=== PATIENT | female | born 1955 | race Caucasian/White ===

== ENCOUNTER 2019-01-06 08:55 | Outpatient (CLI) | payer OTHER, SELFPAY ==
--- NOTE | 2019-01-06 08:52 | DI.RAD_ITS ---
SYMPTOM/DIAGNOSIS: ANNUAL F/U RIGHT HIP: The patient is status post AR. The prosthesis in excellent position. Surrounding bone intact with no significant interval change when compared with prior images.
== END 2019-01-06 09:15 ==
PROVIDERS: PCP Family Medicine; Visit Provider Student in an Organized Health Care Education/Training Program
DX: Z96.641 Presence of right artificial hip joint (principal); Z47.1 Aftercare following joint replacement surgery
CPT/HCPCS: 73502

== ENCOUNTER 2019-06-14 01:25 | Outpatient (CLI) | payer OTHER, SELFPAY ==
--- NOTE | 2019-06-14 16:25 | DI.MAMMO_ITS ---
SYMPTOM/DIAGNOSIS: SCREENING Z12.31 MAMMOGRAM: Mammograms were interpreted according to the usual protocol including computer analysis with CAD system, tomosynthesis and C view imaging. The breasts are of moderate density with fairly symmetrical distribution of fibroglandular tissue. No dominant mass or clumped microcalcification is identified in either beast. The current examination is compared with previous examinations including Nov 2015 and there has been no gross interval change in appearance in comparison with the previous studies. CONCLUSION: No specific evidence of malignancy at this time. Routine screening examinations were suggested at yearly intervals in this age group according to the ACS/ACR guidelines. Category 1, breast density category B. MQSA ASSESSMENT OF FINDINGS: Negative. Category 1. Patient will receive a letter notifying them of these results. BI-RADS category B. There are scattered areas of fibroglandular density.
== END 2019-06-14 01:45 ==
PROVIDERS: PCP Family Medicine; Visit Provider Family Medicine
DX: Z12.31 Encounter for screening mammogram for malignant neoplasm of breast (principal)
CPT/HCPCS: 77063; 77067

== ENCOUNTER 2020-04-13 09:04 | Outpatient (REF) | payer SELFPAY ==
[2020-04-13 20:36] LABS: ALT 61 U/L (14-59); AST 32 U/L (15-37); Albumin 3.9 g/dL (3.4-5.0); Alkaline Phosphatase 103 U/L (46-116); Anion Gap 5.5 mmol/L (3-11); BUN 16 mg/dL (7-18); Bilirubin, Total 0.4 mg/dL (0.2-1.0); CO2 35.5 mmol/L (21.0-32.0); CREATININE 0.95 mg/dL (0.55-1.02); Calcium 8.9 mg/dL (8.5-10.1); Calculated LDL 140 mg/dL (<100); Chloride 101 mmol/L (98-107); Cholesterol 215 mg/dL (<200); Estimated GFR 59.41 (mL/min/1.73m2); Glucose 129 mg/dL (74-106); HDL Cholesterol 51 mg/dL (40-60); Potassium 4.7 mmol/L (3.5-5.1); Sodium 142 mmol/L (136-145); Total Protein 7.3 g/dL (6.4-8.2); Triglyceride 120 mg/dL (<150)
[2020-04-13 20:53] LABS: HCT 46.8 % (36.0-46.0); HGB 14.9 g/dL (12.0-15.5); Mean Corp. HGB Concentration 31.8 g/dL (32.0-36.0); Mean Corpuscular Hemoglobin 28.7 pg (27.0-33.0); Mean Platelet Volume 12.4 fL (8.0-11.0); Platelet Count 219 x1000/uL (130-400); RBC Distribution Width 13.8 % (11.7-14.6); White Blood Cell Count 5.94 k/cumm (4.4-10.8)
== END 2020-04-13 09:24 ==
LOC: NCHCN 09:04
PROVIDERS: PCP Family Medicine; Visit Provider Family Medicine
DX: Z00.00 Encounter for general adult medical examination without abnormal findings (principal); R73.03 Prediabetes; I10 Essential (primary) hypertension; R94.5 Abnormal results of liver function studies; E66.9 Obesity, unspecified
CPT/HCPCS: 80053; 80061; 85027

== ENCOUNTER 2021-03-23 08:12 | Emergency (ER) | payer OTHER, SELFPAY ==
[2021-03-23 08:20] VITALS: BP 174/84; PULSE 74; RESP 18; TEMP 36.4; O2SAT 95
--- NOTE | 2021-03-23 08:29 | ED.GENADUL_ITS ---
Discharge Plan Disposition Patient Disposition: HOME Condition: Stable Discharge Details Clinical Impression: Inversion sprain of left ankle Primary Care Provider: Lisa Langley ED Provider: Niki Gay Home Meds and New Rx's Prescriptions: No Action triamterene-hydrochlorothiazid 1 EACH capsule 1 cap PO DAILY RF: 0 esomeprazole magnesium [Nexium] 20 MG capsule,delayed release(DR/EC) 1 cap PO DAILY PRNRF: 0 acetaminophen [Mapap Extra Strength] 500 MG tablet 1,000 mg PO Q8H PRN PRNQty: 0 RF: 0 Discharge Instructions Instructions: Ankle Sprain (ED) Additional Instructions: Follow up with primary care provider in 3-5 days. Return to ED sooner if any worsening or concerns. Increase oral fluids. Please take Tylenol or Ibuprofen with food every 4-6 hours as needed for pain and swelling. Rest ice compression elevation. Stand Alone Forms: Work Release Referrals: Lisa Langley [Primary Care Provider] - Discharge Data Discharge Date/Time-TO BE ENTERED AT DEPARTURE: 03/23/21 10:10 Medical Decision Making 65-year-old female presents to the ER with left ankle pain after getting out of a car last night she states that she felt acute pain heard a loud pop. She did not fall down after the injury and has been ambulatory with difficulty since then. She did ice it and wrap it with an Charly wrap prior to arrival. She did not take any Tylenol or ibuprofen this morning. Patient has a past medical history of right hip replacement and tubular adenoma, hypertension surgical history includes lithotripsy. Imaging ordered to rule out underlying abnormality at this time I do suspect sprain versus fracture. Ibuprofen ordered and ice pack given. XR ANKLE LT COMPLETE EXAM: XR ANKLE LT COMPLETE CLINICAL HISTORY: R/O Fracture TECHNIQUE: COMPARISON: No exams were available for comparison FINDINGS: Three views were obtained. The ankle mortise is well maintained. There is no evidence of acute fracture or dislocation. Mild degenerative spurring of Achilles and plantar fascia attachments on the calcaneus noted. Mild marginal osteophyte also seen anteriorly at the distal tibia. IMPRESSION: No evidence of acute injury. Patient was discharged with a walking boot instructed on rest ice compression elevation, verbalized understanding. This text was generated using [employer] system, please disregard any oddities of phrase or misspellings. HPI General Mode of arrival: ambulatory . Date/Time Provider Initiated Documentation: 03/23/21 08:22 . Limitations to Documentation: no limitations . Information obtained by: patient . HPI Narrative: 65-year-old female presents to the ER with left ankle pain after getting out of a car last night she states that she felt acute pain heard a loud pop. She did not fall down after the injury and has been ambulatory with difficulty since then. She did ice it and wrap it with an Charly wrap prior to arrival. She did not take any Tylenol or ibuprofen this morning. Patient has a past medical history of right hip replacement and tubular adenoma, hypertension surgical history includes lithotripsy. Related Data Home Medications Medication Instructions Recorded Confirmed esomeprazole magnesium [Nexium] 1 cap PO DAILY PRN 02/05/16 03/23/21 triamterene-hydrochlorothiazid 1 cap PO DAILY 02/05/16 03/23/21 acetaminophen [Mapap Extra 1,000 mg PO Q8H PRN PRN #0 tab 01/07/18 03/23/21 Strength] Previous Rx's Medication Instructions Recorded acetaminophen [Mapap Extra 1,000 mg PO Q8H PRN PRN #0 tab 01/07/18 Strength] Allergies Allergy/AdvReac Type Severity Reaction Status Date / Time No Known Allergies Allergy Unverified 03/23/21 08:22 General Stated Complaint: Orthopedic NATANAEL: 4 Review of Systems All systems reviewed & are unremarkable except as noted in HPI and below Musculoskeletal Musculoskeletal: Reports arthralgias (left ankle) and Reports joint swelling PFSH Medical History Hypertension Surgical History kidney stone lithotipsy Social History Smoking/Tobacco Use Status: Never Smoking risk assessment performed?: Yes Alcohol Intake: never Drug use: Never Substance use type: does not use Do you feel safe at home: Yes Do you feel safe in your relationship?: Yes Exam Extrem Left lower extremity: normal capillary refill, no joint enlargement and lower leg Details: normal to inspection; no tenderness and no deformity; no cyanosis Ankle/foot/toe images: 1. Tenderness just distal to the lateral malleolus, no obvious deformity no crepitus no significant swelling, mild swelling noted approximately 1+ trace pitting edema. Dorsal pedal pulses intact. Course Vital Signs Vital signs: Vital Signs Temperature 36.4 C L 03/23/21 08:20 Pulse 74 03/23/21 08:20 Respiratory Rate 18 03/23/21 08:20 Blood Pressure 174/84 H 03/23/21 08:20 Pulse Oximetry 95 03/23/21 08:20 Temperature 36.4 C L 03/23/21 08:20 Temperature Source Skin 03/23/21 08:20 Pulse 74 03/23/21 08:20 Respiratory Rate 18 03/23/21 08:20 Respiratory Effort Non-Labored 03/23/21 08:24 Blood Pressure 174/84 H 03/23/21 08:20 Blood Pressure Position Sitting 03/23/21 08:20 Pulse Oximetry 95 03/23/21 08:20 Oxygen Delivery Method Room Air 03/23/21 08:20 Oxygen Flow Rate 0 03/23/21 08:20 Pain Level 8 03/23/21 08:24
[2021-03-23] MEDS: Ibuprofen 600 MG TAB PO (08:49)
--- NOTE | 2021-03-23 08:50 | DI.RAD_ITS ---
Exam(s) XR ANKLE LT COMPLETE EXAM: XR ANKLE LT COMPLETE CLINICAL HISTORY: R/O Fracture TECHNIQUE: COMPARISON: No exams were available for comparison FINDINGS: Three views were obtained. The ankle mortise is well maintained. There is no evidence of acute frac ture or dislocation. Mild degenerative spurring of Achilles and plantar fascia attachments on the ca lcaneus noted. Mild marginal osteophyte also seen anteriorly at the distal tibia. IMPRESSION: No evidence of acute injury. RADIATION DOSE DELIVERED: Total DLP
== END 2021-03-23 10:10 | disposition home or self-care (01) ==
PROVIDERS: Emergency Provider Registered Nurse Emergency; PCP Family Medicine
DX: S93.492A Sprain of other ligament of left ankle, initial encounter (principal); X58.XXXA Exposure to other specified factors, initial encounter
CPT/HCPCS: 29515; 99283; 73610; 99282

== ENCOUNTER 2021-12-26 14:25 | Outpatient (REF) | payer OTHER, SELFPAY ==
--- NOTE | 2021-12-26 09:30 | PAPFT_PTH ---
PATIENT: Jemma Turner LOC: [facility]#:[id number] AGE/SX: 66/F ROOM: RE12/26/[address]: Lisa Langley : 1955 BED: DIS: 12/26/2021 SPEC #: [id number] RECD: 12/27/21 12:56 STATUS: CRISTI BOYCE #: [id number] SHREYA: 12/26/21 09:[address]: Lisa Langley DEPT: [facility] Cytology RECD BY: Shireen Morales Tissues: 1 - CX/ENDOCX FOR PAP SMEARS Procedures: PAP THIN PREP/UVM Screening HPV DNA PROBE Comments: [id number]
== END 2021-12-26 14:26 | disposition home or self-care (01) ==
LOC: NCHCN 14:25
PROVIDERS: PCP Family Medicine; Visit Provider Family Medicine
DX: Z12.4 Encounter for screening for malignant neoplasm of cervix (principal); Z11.51 Encounter for screening for human papillomavirus (HPV)
CPT/HCPCS: 88142; 87624

== ENCOUNTER 2022-01-15 01:22 | Outpatient (CLI) | payer OTHER, SELFPAY ==
--- NOTE | 2022-01-15 09:15 | DI.MAMMO_ITS ---
Exam(s) MAMMO SCREENING EXAM: MAMMO SCREENING CLINICAL HISTORY: SCREENING, Z12.31 TECHNIQUE: Mammograms were interpreted according to the usual protocol including computer analysis w Lindsey [employer] CAD system, tomosynthesis and C-view imaging. COMPARISON: 2012 through 2018 FINDINGS: The breasts are composed of mainly fatty density , Breast Density category A. No suspicious masses or suspicious microcalcifications are seen. No skin thickening or abnormal axillary lymph nodes are seen. There has been no significant change from prior exams. IMPRESSION: BI-RADS Category 1, Negative mammogram Yearly screening mammography is recommended. Breast Density - Category A, fatty density. A negative radiographic report should not delay biopsy if a dominant or clinically suspicious mass is present. Up to ten percent of cancers are not identified on mammography. A negative report may reinforce clinical impression. Adenosis and dense breasts may obscure an underlying neoplasm. False positive reports average 6 to 10%. Patient will receive a letter notifying them of these results.
== END 2022-01-15 01:42 ==
PROVIDERS: PCP Family Medicine; Visit Provider Family Medicine
DX: Z12.31 Encounter for screening mammogram for malignant neoplasm of breast (principal)
CPT/HCPCS: 77063; 77067

== ENCOUNTER 2022-08-14 16:54 | Outpatient (REF) | payer OTHER, SELFPAY ==
[2022-08-14 14:57] LABS: HCT 44.7 % (36.0-46.0); HGB 14.2 g/dL (11.2-15.7); MCH 28.7 pg (27.0-33.0); MCHC 31.8 % (32.0-36.0); MCV 90 fL (80-95); MPV 12.2 fL (8.0-11.0); Platelet Count 199 10^3/uL (130-400); RBC 4.95 10^6/uL (3.93-5.22); RDW 13.2 % (11.7-14.6); RDW-SD 43.5 fL; WBC 5.36 10^3/uL (4.4-10.8)
[2022-08-14 15:18] LABS: ALT 90 U/L (14-59); AST 51 U/L (15-37); Albumin 3.6 g/dL (3.4-5.0); Alkaline Phosphatase 90 U/L (46-116); Anion Gap 3.9 mmol/L (3-11); BUN 17 mg/dL (7-18); Bilirubin, Total 0.5 mg/dL (0.2-1.0); CO2 34.1 mmol/L (21.0-32.0); CREATININE 0.8 mg/dL (0.55-1.02); Calcium 8.9 mg/dL (8.5-10.1); Chloride 102 mmol/L (98-107); Estimated GFR 81.72 (mL/min/1.73m2); Glucose 133 mg/dL (74-106); Potassium 4.2 mmol/L (3.5-5.1); Sodium 140 mmol/L (136-145); Total Protein 7.4 g/dL (6.4-8.2)
[2022-08-14 15:28] LABS: Hemoglobin A1C 7.9 % (<5.7)
== END 2022-08-14 16:55 | disposition home or self-care (01) ==
LOC: NCHCN 16:54
PROVIDERS: PCP Family Medicine; Visit Provider Family Medicine
DX: I10 Essential (primary) hypertension (principal); R73.03 Prediabetes; R94.5 Abnormal results of liver function studies
CPT/HCPCS: 80053; 85027; 83036; 83735

== ENCOUNTER 2023-01-13 10:40 | Outpatient (CLI) | payer BC, MEDICARE, SELFPAY ==
--- NOTE | 2023-01-13 10:00 | DI.RAD_ITS ---
Exam(s) XR HIP LT COMPLETE AP PELVIS EXAM: XR HIP LT COMPLETE AP PELVIS CLINICAL HISTORY: l hip pain. TECHNIQUE: 2D digital imaging was performed. COMPARISON: CR RT HIP COMPLETE AP PELVIS from 01/21/2018 CR XR hip RT AP lat only from 01/06/2019 FINDINGS: Two views: No evidence pelvic nor hip fracture. Right hip prosthesis appears stable. Compared to 2018 there is further narrowing of the left hip joint. IMPRESSION: Stable appearance of the right hip prosthesis. Further progression of osteoarthritic degenerative changes in the left hip, presently severe. DATA REPOSITORY: RADIATION DOSE DELIVERED:
== END 2023-01-13 10:41 | disposition home or self-care (01) ==
LOC: DIORS 10:42
PROVIDERS: PCP Family Medicine; Referring Provider Family Medicine; Visit Provider Physician Assistant
DX: M16.12 Unilateral primary osteoarthritis, left hip (principal)
CPT/HCPCS: 99213; 73502

== ENCOUNTER 2023-02-07 01:23 | Outpatient (CLI) | payer BC, MEDICARE, SELFPAY ==
[2023-02-07 11:19] LABS: HCT 44.7 % (36.0-46.0); HGB 15.2 g/dL (11.2-15.7); MCH 29.7 pg (27.0-33.0); MCV 88 fL (80-95); MPV 11.7 fL (8.0-11.0); Platelet Count 222 10^3/uL (130-400); RBC 5.11 10^6/uL (3.93-5.22); RDW 12.8 % (11.7-14.6); WBC 6.24 10^3/uL (4.4-10.8)
[2023-02-07 11:46] LABS: Anion Gap 6.2 mmol/L (3-11); BUN 21 mg/dL (7-18); CO2 30.8 mmol/L (21.0-32.0); CREATININE 0.9 mg/dL (0.55-1.02); Calcium 9.4 mg/dL (8.5-10.1); Chloride 103 mmol/L (98-107); Estimated GFR 70.51 (mL/min/1.73m2); Glucose 138 mg/dL (74-106); Potassium 3.8 mmol/L (3.5-5.1); Sodium 140 mmol/L (136-145)
== END 2023-02-07 01:24 | disposition home or self-care (01) ==
LOC: LBO 01:23
PROVIDERS: PCP Family Medicine; Visit Provider Student in an Organized Health Care Education/Training Program
DX: M25.552 Pain in left hip (principal); M16.12 Unilateral primary osteoarthritis, left hip; Z01.818 Encounter for other preprocedural examination; Z01.812 Encounter for preprocedural laboratory examination
CPT/HCPCS: 36415; 80048; 85027

== ENCOUNTER 2023-02-11 05:51 | Day surgery (SDC) | payer BC, MEDICARE, SELFPAY ==
[2023-02-11] VITALS (14 sets, daily range): BP systolic 94–152; BP diastolic 47–89; PULSE 59–71; RESP 14–23; TEMP 35.9–36.4; O2SAT 92–95; BMI 41.0
[2023-02-11] MEDS: Acetaminophen 500 MG TAB 1000 MG PO ×2 (06:27→14:47)
[2023-02-11] MEDS: Celecoxib 200 MG CAP 400 MG PO (06:27)
[2023-02-11] MEDS: Lactated Ringers 1,000 ML 80 ML IV (06:50)
--- NOTE | 2023-02-11 07:01 | W.ANESPRE ---
General Info Date of Service Date Performed: 02/11/23 Height: 5 ft 9.5 in Weight: 127.8 kg Body Mass Index (BMI): 41.0 Surgical Procedure: Operation Date: 02/11/23 07:50 Proposed Procedure Side Surgeon p Hip Total Hip Anterior, ACTIS Left Xiang Lopez MD Meds Allergies and Home Medications Allergies Allergy/AdvReac Type Severity Reaction Status Date / Time No Known Allergies Allergy Unverified 02/11/23 06:12 Home Medication Medication Instructions Recorded esomeprazole magnesium 20 mg 1 cap PO DAILY PRN 02/05/16 capsule,delayed release (Nexium) triamterene 37.5 1 cap PO DAILY 02/05/16 mg-hydrochlorothiazide 25 mg capsule ibuprofen 200 mg tablet 800 mg PO Q6H PRN 02/11/23 Current Visit Medications: Current Medications Generic Name Dose Route Start Last Admin Trade Name Freq PRN Reason Stop Dose Admin Acetaminophen 1,000 mg 02/11/23 06:00 02/11/23 06:27 Acetaminophen 500 Mg Tab PO 02/11/23 16:00 1,000 mg PREOP JOHN Administration Celecoxib 400 mg 02/11/23 06:00 02/11/23 06:27 Celecoxib 200 Mg Cap PO 02/11/23 16:00 400 mg PREOP JOHN Administration Tranexamic Acid 1,000 mg/ 60 mls @ 360 mls/hr 02/11/23 06:00 Sodium Chloride IV 02/11/23 16:00 PREOP JOHN Ringer's Solution 1,000 mls @ 80 mls/hr 02/11/23 06:00 02/11/23 06:50 IV 02/11/23 23:59 80 mls/hr INFUSION JOHN Administration Cefazolin Sodium 3,000 mg/ 100 mls @ 200 mls/hr 02/11/23 06:00 Sodium Chloride IVPB 02/11/23 16:00 PREOP JOHN IV Miscellaneous Supplies 1 each 02/11/23 06:00 Iv Access IV 02/11/23 23:59 DIRECTED JOHN Sodium Chloride 0 ml 02/11/23 06:00 Normal Saline Flush 10 Ml Syr IV 02/11/23 23:59 PRN PRN Sodium Chloride 0 ml 02/11/23 06:00 Normal Saline 10 Ml Vial IJ 02/11/23 23:59 DIRECTED PRN Sterile Water 0 ml 02/11/23 06:00 Water,Injection,Sterile 10 Ml Vial IJ 02/11/23 23:59 DIRECTED PRN PFSH Active Problems Active Problems: Problem Status Onset Code Tubular adenoma 02/05/16 D36.9 Inversion sprain of left ankle S93.402A Type 2 diabetes mellitus E11.9 Abnormal LFTs R79.89 Degenerative joint disease of left hip M16.12 Medical History Medical History History of adenomatous polyp of colon Hypertension Obesity Surgical History Surgical History (Updated 02/11/23 @ 06:15 by Natlaiya Armstrong) History of right hip replacement (02/18/18) DOS: 01/06/18 Dr. Lopez Hx of colonoscopy kidney stone lithotipsy Tobacco Smoking/Tobacco Use Status: Never Alcohol Alcohol Intake: never Substance Use Substance use: Never Substance use type: does not use Vital Signs and Lab Results Vital Signs Most Recent Vital Signs in EMR: Most Recent Vital Signs Temp Pulse Resp BP Pulse Ox 36.2 C L 71 18 152/89 H 94 02/11/23 06:16 02/11/23 06:16 02/11/23 06:16 02/11/23 06:16 02/11/23 06:16 Lab Results Blood Type / Crossmatch: No Data to Display Complete Blood Count: White Blood Count 6.24 10^3/uL (4.4-10.8) 02/07/23 11:10 Red Blood Count 5.11 10^6/uL (3.93-5.22) 02/07/23 11:10 Hemoglobin 15.2 g/dL (11.2-15.7) 02/07/23 11:10 Hematocrit 44.7 % (36.0-46.0) 02/07/23 11:10 Platelet Count 222 10^3/uL (130-400) 02/07/23 11:10 Complete Metabolic Panel: Sodium 140 mmol/L (136-145) 02/07/23 11:10 Potassium 3.8 mmol/L (3.5-5.1) 02/07/23 11:10 Chloride 103 mmol/L (98-107) 02/07/23 11:10 Carbon Dioxide 30.8 mmol/L (21.0-32.0) 02/07/23 11:10 BUN 21 mg/dL (7-18) H 02/07/23 11:10 Creatinine 0.9 mg/dL (0.55-1.02) 02/07/23 11:10 Est GFR (CKD-EPI 2020) 70.51 (mL/min/1.73m2) 02/07/23 11:10 Calcium 9.4 mg/dL (8.5-10.1) 02/07/23 11:10 Glucose 138 mg/dL (74-106) H 02/07/23 11:10 Liver Function Panel: No Data to Display Coagulation Panel: No Data to Display Cardiac Panel: No Data to Display Arterial Blood Gas: No Data to Display Venous Blood Gas: No Data to Display Pancreas Panel: No Data to Display Thyroid Panel: No Data to Display Infectious Disease: No Data to Display Blood Cultures: No Data to Display Toxicology Panel: No Data to Display Anesthesia Assessment and Plan Anesthesia History Personal History: No History of Anesthesia Complications Family History: Family History Unknown Exercise Tolerance Exercise Tolerance: Metabolic Equivalents>4 Pertinent Negatives Pertinent Negatives: No Symptoms of GERD, No Major Cardiovascular Symptoms or Complaints and No Major Pulmonary Symptoms or Complaints Cardiac & Pulmonary Exam Cardiac Exam: Normal S1/S2 Heart Sounds Pulmonary Exam: Clear Bilateral Breath Sounds and Unable to Assess Implantable Cardiac Device Does patient have a Pacemaker or an ICD?: No Airway Exam Known Difficult Airway: No Mallampati Class: 2 Mouth Opening: Normal (> 3cm) Thyromental Distance: Greater than 3 cm Neck Range of Motion: Full ROM Neck Circumference: Normal Teeth Condition: Removable Dentures/Plates Upper ASA Classification ASA Score: ASA 3 Emergency Case?: No NPO Status NPO Status: NPO Clears >2 hours, Solids >8 hours Anesthesia Plan Resuscitation Status: Full Code Anesthesia Technique: General Anesthesia Airway Planned: LMA Monitors Used: Standard Monitors
--- NOTE | 2023-02-11 07:12 | DSE_ITS ---
Date of service: 02/11/23 Time of Service: 07:17 DS: Diagnosis Discharge Diagnosis (1) Degenerative joint disease of left hip: Status: Chronic Discharge Plan Disposition Patient Disposition: Home Condition: Good Discharge Details Reason For Visit: Left hip DJD Attending Provider: Xiang Lopez Primary Care Provider: Lisa Langley Home Meds and New Rx's Prescriptions: New acetaminophen 500 mg tablet 1,000 mg PO Q8H PRN Qty: 90 0RF Rx Instructions: Take two tablets up to every 8 hours as needed for pain aspirin 81 mg tablet,delayed release (DR/EC) 81 mg PO BID 30 Days Qty: 60 0RF celecoxib [Celebrex] 200 mg capsule 200 mg PO BID PRNQty: 60 0RF Rx Instructions: Take one tablet twice daily for pain and inflammation docusate sodium [Colace] 100 mg capsule 100 mg PO BID Qty: 30 0RF dexamethasone 4 mg tablet 4 mg PO DAILY Qty: 2 0RF Rx Instructions: Take one tablet once daily for two days oxycodone 5 mg tablet 5 mg PO Q6H PRNQty: 12 0RF Rx Instructions: Take one tablet up to every 6 hours as needed for severe postoperative pain Continued triamterene-hydrochlorothiazid 1 EACH capsule 1 cap PO DAILY esomeprazole magnesium [Nexium] 20 MG capsule,delayed release(DR/EC) 1 cap PO DAILY PRN Discontinued ibuprofen 200 mg Tablet 800 mg PO Q6H PRN Discharge Instructions Additional Instructions: Total Hip Discharge Instructions Activity: The most important activity is to walk. You should try to take short walks a few times a day. You have no restrictions on movement or positioning, but do not try to force what you do. You will find some stiffness and weakness with hip flexion (lifting your knee). Do not try to strengthen this too early, continue to practice walking and stairs and this will come. - Outpatient physical therapy can be helpful to help return you to a normal gait and improve your flexibility and strength. This can start around 2 weeks. For some patients, it?s not necessary. Usually this is determined at the time of discharge or at the first post-operative visit. - You should wear the DELLA hose on both legs for 2 weeks. Dressing: Keep the surgical dressing in place for at least one week. After the first week it may be removed and replace with light gauze and tape or nothing. It may get wet after 3 days but avoid soaking the dressing. If it gets wet, just lightly pat dry. It is important to always keep some gauze between skin folds, especially when you are sitting. Spend some time with the wound exposed when you are lying flat as the incision does wrinkle onto itself. Medications: - You should take Tylenol and an anti-inflammatory Celebrex as your primary pain control medications. If the Celebrex is too expensive or not covered, please call the office for another alternative (Advil/Ibuprofen or Naproxen/Aleve). - You have been prescribed a stronger pain medication Oxycodone for breakthrough pain, take as needed as prescribed. - You take Esomeprazole at baseline - continue with this medication to help reduce stomach acid and reflux. - You have also been prescribed Decadron to help with post-operative nausea and pain. You will take this for two days starting tomorrow. - You will be taking Aspirin 81mg twice a day for DVT prevention unless instructed otherwise. - If you have constipation you should take Colace (which has been prescribed) or Miralax (which is available [id number]). It takes most people 3-4 days to have a bowel movement. Follow-up: 2 weeks If you have any acute concerns or questions, please do not hesitate to contact the office at [phone]. You may contact Dr. Lopez with any questions after hours through the hospital at [phone] or on his cell phone at [phone]. Stand Alone Forms: Anesthesia Discharge Inst., Maya Sandoval (DSU) Referrals: Xiang Lopez MD [ [facility] STAFF PHYSICIAN] - Equipment/Supplies: Walker Activity:: Elevate Remove Dressings/Wound Care:: Do Not Remove Shower/Bathe:: Cover Diet:: As Tolerated Discharge Orders Discharge Orders: Discharge Order (Routine); Ordered 02/11/23 Ordered By: Xiang Lopez DS: Summary Time Spent with Patient providing and/or coordinating discharge services: Less than 30 minutes Status at Discharge Functional status at discharge: uses cane/walker Overall status at discharge: patient is progressing back to baseline Mental Status: mental status grossly normal Speech and Movement: speech and movement normal Mood: congruent mood Affect: normal affect Exam Psych Mental Status: mental status grossly normal Speech and Movement: speech and movement normal Mood: congruent mood Affect: normal affect DS: Data Vitals/I&O Vitals and I&O: Vital Signs Temperature 97.2 F L 02/11/23 06:16 Pulse 71 02/11/23 06:16 Pulse Rhythm Regular 02/11/23 06:16 Respiratory Rate 18 02/11/23 06:16 Respiratory Depth Normal 02/11/23 06:16 Blood Pressure 152/89 H 02/11/23 06:16 Pulse Oximetry 94 02/11/23 06:16 Oxygen Delivery Method Room Air 02/11/23 06:16 Oxygen Flow Rate 0 02/11/23 06:16 Pain Level 2 02/11/23 06:16 Intake & Output 02/10/23 02/10/23 02/11/23 11:59 23:59 11:59 Weight 280 lb 15.984 oz 281 lb 12.012 oz PFSH All Active Problems Tubular adenoma (Acute 02/05/16) Inversion sprain of left ankle (Acute) Type 2 diabetes mellitus (Acute) Abnormal LFTs (Acute) Degenerative joint disease of left hip (Chronic) Medical History History of adenomatous polyp of colon Hypertension Obesity Surgical History (Updated 02/11/23 @ 06:15 by Nataliya Armstrong) History of right hip replacement (02/18/18) DOS: 01/06/18 Dr. Lopez Hx of colonoscopy kidney stone lithotipsy Social History Smoking/Tobacco Use Status: Never Smoking risk assessment performed?: Yes Alcohol Intake: never Drug use: Never Substance use type: does not use Do you feel safe at home: Yes Do you feel safe in your relationship?: Yes Additional Social history: Unable to assess privatley Time Spent with Patient Time Spent with Patient: <45 minutes Time was spent: obtaining and/or reviewing separately otained hiistory, ordering medications,tests, procedures and counseling the patient
--- NOTE | 2023-02-11 07:15 | DI.RAD_ITS ---
Exam(s) XR HIP LT IN OR EXAM: XR HIP LT IN OR CLINICAL HISTORY: left hip replacement in OR TECHNIQUE: 2D and realtime digital imaging was performed. CONTRAST MATERIAL: Refer to procedure report. COMPARISON: CR XR HIP LT COMPLETE AP PELVIS from 01/13/2023 FINDINGS: Fluoroscopy was provided for Dr. Lopez during the performance of a left hip replacement. Please refer to the procedure report for complete details. Ka,r=12.3 mGy IMPRESSION: RADIATION DOSE DELIVERED:
[2023-02-11] MEDS: ceFAZolin 3,000 MG in Normal Saline 100 ML 200 MG IVPB (07:35)
[2023-02-11] MEDS: HYDROmorphone 2 MG/ML SYR IVP ×2 (10:03→10:16)
[2023-02-11] MEDS: Normal Saline 10 ML VIAL IJ (10:03)
[2023-02-11] MEDS: oxyCODONE 5 MG TAB PO (11:11)
--- NOTE | 2023-02-11 11:20 | W.ANESPOSTOP ---
Postoperative Evaluation Date, Time and Location Date Performed: 02/11/23 Time Performed: 10:35 Patient Location: PACU Vital Signs Most Recent Imported Vital Signs: Most Recent Vital Signs Temp Pulse Resp BP Pulse Ox 35.9 C L 68 18 108/64 94 02/11/23 11:13 02/11/23 11:13 02/11/23 11:13 02/11/23 11:13 02/11/23 11:13 Pain Score Most Recent Pain Score: Most Recent Pain Score Pain Level 6 02/11/23 10:52 Assessment Mental Status: Awake (Alert & Oriented to Patient Baseline) Airway and Respiratory Function: Patent airway with normal (patient baseline) respiratory exam Cardiovascular Function: Hemodynamically Stable Hydration Status: Adequately Hydrated Nausea & Vomiting: No Nausea or Vomiting Pain: Pain is tolerable per patient Peripheral Nerve Block: Patient did not receive a nerve block
--- NOTE | 2023-02-11 12:10 | IN_ITS ---
PT Notes Visit Reasons: Left hip DJD Physical Therapy Day Surgery Initial Evaluation Date: 02/11/2023 Referring Doctor: FARHAN Ramirez PT Orders: PT CONSULT: S/P Ortho surgery Precautions: WBAT on left LE with AD. Patient Profile/Admitting Diagnosis: Jemma is a 67-year-old female with degenerative joint disease of the left hip and status post left anterior total hip arthroplasty on postoperative day 0. PMHX: Medical History?(Updated 02/06/23 @ 16:07 by Mirtha Pinon) History of adenomatous polyp of colon Hypertension Obesity Surgical History?(Updated 12/17/22 @ 15:41 by Amy Rivas RN) History of right hip replacement (02/18/18) DOS: 01/06/18 Dr. Lopez kidney stone lithotipsy Social History/Home Situation: Lives with in a private home with 3 steps to enter with rails on both sides. Independent with all aspects of ADLs but had been having difficulty performing them due to worsening pain in left hip. Equipment Owned/DME: None Subjective: Complained of lightheadedness and nausea during ambulation activity that resolved after about two hours of rest. Denies headache and chest pain during 2 PT sessions with patient today. Objective: General Observation: Mepilex Ag over surgical incision. Supine in bed. TEDs to B legs. In NAD. present in room throughout session. Mental Status: Alert and oriented x4 Pain: 1?2/10 pain in the left hip at rest and with movement. ROM: Right Lower Extremity: Hip flexion WFL. Hip abduction WFL. Knee flexion WFL. Ankle dorsiflexion WFL. Ankle plantarflexion WFL. Left Lower Extremity: Hip flexion WFL. Hip abduction WFL. Knee flexion WFL. Ankle dorsiflexion WFL. Ankle plantarflexion WFL. Strength: Right Lower Extremity: Hip flexors 5/5. Hip abductors 5/5. Knee flexors 5/5. Knee extensors 5/5. Ankle dorsiflexors 5/5. Ankle plantarflexors 5/5. Left Lower Extremity:Hip flexors 4-/5. Hip abductors 4-/5. Knee flexors 5/5. Knee extensors 4-/5. Ankle dorsiflexors 5/5. Ankle plantarflexors 5/5. Sensation: Intact as to pain and light pressure in bilateral lower extremities Bed Mobility/Transfers: Supine to sit standby assist Sit to stand contact-guard assist Stand to sit standby assist Bed to chair standby assist Gait: Tolerated level surface ambulation of about 80 feet using front-wheeled walker with step-to gait pattern before patient felt lightheaded, nauseated, and vomitted x 3 with moderate amount of vomitus. Nurses Maggie and Mu Menon and Ashley assisted to clean up patient before PT safely assisted with transfer from wheelchair back to bedside chair. Stairs: Stair negotiation was deferred until patient's status re-stabilized. Patient was seen 2 hours later and was able to complete 6 x 4 inch steps and 4 x 6 inch steps of holding onto bilateral rails with step-to gait pattern requiring contact-guard assist with no further complaint of lightheadedness and nausea. Balance: Static Sitting: Normal Dynamic Sitting: Normal Static Standing: Fair Dynamic Standing: Fair Special Tests: Mobility Limitations Standardized Measure [facility]-PAC 6 clicks Basic Mobility Inpatient Short Form: Raw Score: 2` CMS Score: 29% deficit Informed Consent/Education: Patient instructed in purpose of PT consult. Packet containing AR exercise protocol has been given to patient. Education and training on initial set of exercises that can be done at home have been completed with patient. NEURO RE-ED: Facilitated muscle reactivation and recruitment of L hip musculature S/P L hip AR to allow for safe performance of bed mobility, transfers, and ambulation with AD. Instructed on safe and correct performance of HEP written below: Access Code: [email or web address] URL: [email or web address] Date: 02/11/2023 Prepared by: Zully Caballero Exercises - Supine Gluteal Sets - 1 x daily - 7 x weekly - 3 sets - 10 reps - Supine Ankle Pumps - 1 x daily - 7 x weekly - 3 sets - 10 reps - Supine Heel Slide - 1 x daily - 7 x weekly - 3 sets - 10 reps - Seated Ankle Pumps - 1 x daily - 7 x weekly - 3 sets - 10 reps - Supine Ankle Pumps - 1 x daily - 7 x weekly - 3 sets - 10 reps - Seated March - 1 x daily - 7 x weekly - 3 sets - 10 reps Assessment: Patient requires use of front wheeled walker to maximize independence and reduce fall risk. Patient presents with clinical signs and symptoms consistent with current/admitting diagnoses that have resulted to mobility limitations, gait instability, generalized weakness, and impairment of motor control as demonstrated by the following impairment level findings: 1. Decreased strength to left hip major muscle groups 2. Impaired standing balance Impairments are contributing to the following functional limitations: 1. Inability to safely ambulate without assistive device 2. Increase completion time for mobility ADL performance 3. Increased fall risk Patient is assessed as a 18144 moderate complexity based on the following: History: 67-year-old female with impairment level findings, functional limitations, and past medical history as indicated above Examination: Demonstrable impairment in strength, balance, and mobility level with underlying impairments and functional limitations as documented above Presentation: Evolving Decision Makin moderate complexity Goals: N/A. PT evaluation and 1-2 treatment sessions only for functional mobility training using recommended AD and for HEP instruction. Plan of Care/Treatment Plan: N/A. PT evaluation and 1-2 treatment session only for functional mobility training using recommended AD and for HEP instruction. DISCHARGE RECOMMENDATIONS: Home when medically cleared by orthopedic surgeon. Recommend outpatient PT services in order to optimize functional mobility outcomes and facilitate return to independent community ambulation with a least restrictive device. TREATMENT CODE/TIME: 80889 x 20 minutes, 29604 x 31 minutes beginning at 12:15 PM and 14:15 PM. Thank you for the opportunity to participate in the care of this patient. Zully Caballero PT, DPT, CLT [facility] [place], [place]
--- NOTE | 2023-02-11 16:05 | ROE_ITS ---
Date of service: 02/11/23 Time of Service: 09:05 Operative Note Operative Note DATE OF PROCEDURE: 02/11/23 PRE-OP DIAGNOSIS: Left Hip Arthritis POST-OP DIAGNOSIS: same PROCEDURE: Left Anterior Total Hip Arthroplasty with Intraoperative Navigation SURGEON: Xiang Lopez CLINICAL LABORATORY SCIENCE PROFESSOR: Mirtha Pinon ANESTHESIA TYPE: Spinal Refer to Anesthesia Record ESTIMATED BLOOD LOSS: 250 PATHOLOGY: none sent TOURNIQUET TIME: 0 COMPLICATIONS: None Patient was transported to: PACU Patient's condition: stable Implants: 1. Depuy Petroleum Acetabular Component, 52mm 2. Depuy Acetabular Liner, [id number] 3. Depuy Actis Standard Collared Femoral Stem, Size 7 4. Depuy Altrx Ceramic Femoral Head, Size 36+1.5mm Indications: I have seen Jemma in clinic for symptoms of hip arthritis, confirmed with radiographic findings. She has exhausted nonoperative methods and was having significant limitations in daily function and desired better function and less pain. I discussed the technical details of a hip replacement. I explained the risks of the procedure to include, but not limited to, bleeding, infection, pain, stiffness, fracture, damage to nerves and vessels, damage to muscles and tendons, loosening, instability, leg length inequality, need for repeat proced ure, blood clot and cardiopulmonary demise. Despite these risks, Annetta elected to proceed. Findings: There was significant signs of arthritis throughout the hip with large osteophytes about the femoral head/neck junction and loss of cartilage from the weigh bearing portions of the joint. Procedure Description: Jemma was greeted in the preoperative holding area where the correct side was identified and marked. The consent was reviewed with the patient and signed. The history and physical was updated. All questions were answered. She was taken back to the operating room. A general anesthestic was then administered. The feet were wrapped with cast padding and Coban and then placed into the boot liners and then into the boots. Care was taken to protect the skin and make sure the heels were fully down and the boots were stable. The patient was then positioned onto the HANA table. Both legs were held in a neutral position. SCDs were applied. The patient was then slid down onto a peroneal post. Prophylactic antibiotics in the form of Cefazolin were administered. 1g of Tranxemic Acid was given intravenously within 30 minutes of incision. The left leg was then prepped with Chloraprep and draped in a standard fashion. A second prep with Chloraprep was performed prior to placement of a shower-curtain type drape with Iodine impregnated skin protection. A timeout to confirm correct identity, side and site, procedure, allergies, anesthesia, and medical concerns was performed. An obliquely oriented incision was made starting lateral to the ASIS and running distal over the Tensor Fascia Carmen (TFL) muscle belly toward the fibular head, approximately 10cm. The skin and soft tissue was dissected sharply, through Ester?s fascia, and to the fascia of the TFL. With the fascia and superior border of the IT band identified, the fascia was incised with a new knife just above any perforators from the IT band. The TFL muscle belly was bluntly dissected away from the fascia and moved laterally. The fat between TFL and rectus was identified to ensure the dissection was not within the TFL. Blunt dissection created space between abductors and the capsule and retractor was placed over the lateral femoral neck. The fibers of the rectus femoris tendon were identified and these were freed from the anterior capsule. A second cobra retractor was placed around the medial femoral neck. The TFL was further retracted laterally to show the deep fascia. Careful dissection through this layer identified three main crossing vessels of the lateral femoral circumflex. These were cauterized in multiple locations and then cut without any noticeable bleeding. The TFL was further released bluntly from the deep fascia to expose anterior hip capsule and fat The Jamey orthopaedic retractor was then placed beneath the TFL and against sartorius and medial soft tissues to protect and retract the soft tissues. A T-capsulotomy was then performed starting at the superior lateral acetabulum and moving distally to the intertrochanteric ridge. These capsular flaps were tagged with a No. 1 Ethibond and elevated from within. The capsular flaps were released to the shoulder of the lateral neck and to the lesser trochanter to give excellent visualization of the proximal femur. A neck osteotomy was performed using an oscillating saw based on preoperative templates. This cut started in the shoulder and of the lateral neck and exited medially. The saw was at all times directed medially to avoid injury to the greater trochanter. Gross traction was applied to the leg and the osteotomy opened. The femoral head was removed with a corkscrew, making sure to protect the TFL on its exit. Traction was released after head removal. This was measured on the back table to determine the starting reamer size. Portions of the rectus obscuring visualization were minimally elevated off the superior acetabulum. An anterior retractor was placed over the anterior wall between capsule and labrum and attached to the Gripper retraction system. The femur was rotated to 90 degrees and medial capsule was fully released until the lesser trochanter was palpable and visible; the femur was returned to 30 degrees. A posterior retractor was placed similarly between capsule and labrum. This provided excellent visualization. The contents of the cotyloid fossa were removed with electrocautery and the labrum was removed with a knife. There was a notable floor osteophyte. There was significant chondromalacia of the superior acetabulum. Acetabular reaming began with a 48mm reamer. This first reaming was directed anterior to posterior and medial to get down to the true floor. This was inspected and reamed until the true floor was reached. The anterior retractor was then released and entry and exit was provided by traction on the capsular flaps. I then reamed sequentially up to a 52mm reamer where good fit was obtained. The larger reamers were oriented based on anatomical reference of the anterior and lateral nieto to ensure proper abduction and anteversion. Positioning and size was confirmed with the fluoroscopy. A 52mm Depuy Petroleum acetabular component was selected. The acetabulum was reamed around the periphery with the selected acetabular size to prevent a rim fit. The deep tissues were irrigated. The acetabular component was then impacted in a position of about 40-45 degrees of abduction and 15-20 degrees of anteversion, using the patient?s anatomy as the ultimate landmark. Fluoroscopy was used to confirm this. There was excellent electronic device repairer of the acetabular component and the inserting handle was removed. The acetabular liner, Depuy [id number] polyethylene liner, was inserted and lined up with the tines of the acetabular component. There was no soft tissue interposition. The liner was then impacted into position and confirmed to be well-seated. A portion of the yarelis-articular cocktail was then injected around the acetabulum into the capsule and periosteum. This cocktail consisted of 123mg of Ropivacaine, 0.25mg of Epinephrine, 0.04mg of Clonidine, and 15mg of Ketorolac, diluted to 50cc. The leg was rotated to 120 degrees. Any remaining medial capsule was released until the lesser trochanter was easily palpable. A retractor was placed medially. The lateral capsule was further released into the shoulder to allow access to the greater trochanter. A Nino retractor was placed over the greater trochanter which allowed the trochanter to flip in front of the capsule for excellent exposure. The leg was brought down into maximal extension and 20 degrees of adduction while ensuring there was no impingement on the acetabulum. Any remnant capsule within the trochanter was released. Piriformis and obturator externis were identified and protected. There was excellent access to the proximal femur. The lateral neck remnant was removed with a rongeur. A blunt canal probe was used to identify the canal and trajectory for later broaching. A box osteotome initiated the broach course. A small curved rasp a nd a curved curette were used to work laterally. Broaching then began with a starter Actis broach. This was inserted manually around the trochanter and into the canal before mallet blows. The broach was seated to the neck cut level based on the neck cut and the preoperative template. Sequential broaching was continued with the [employer] pneumatic broaching device until a tight fit was obtained with good rotational control of the femur. A trial standard neck was inserted along with a +1.5 trial head. The leg was brought out of extension and adduction and then reduced with traction and internal rotation. The leg was stable anteriorly in a position of 30 degrees of extension and 90 degrees of external rotation. Fluoroscopy was used to ensure there was no fracture and the stem was seated well. Leg lengths were checked with an AP pelvis and pelvic reference points. MOBITRAC navigation system was used to confirm appropriate positioning and leg length and offset. Once content with the desired offset and leg lengths, the leg was brought back into extension, external rotation and adduction. The periosteum and surrounding tissue was injected with remaining portion of the yarelis-articular cocktail. The proximal femur was irrigated as well as the deep tissues. The Pur[employer]uy Actis standard collared stem, size 7, was then manually inserted into the proximal femur making sure to control rotation. It was then malleted into position with light blows, giving breaks to allow bone expansion and decrease risk of fracture. The selected Depuy Altrx Ceramic Head, size 36+1.5mm, was then placed onto the clean and dry trunnion and secured with impaction onto the tapered fit. The leg was brought back out of extension and adduction and reduced with traction and internal rotation. Stability was confirmed with no shuck at 90 degrees of external rotation and 30 degrees of extension. No impingement through range of motion arc. Final x-ray images were obtained with fluoroscopy to confirm adequate positioning and no intraoperative fracture. The deep tissues were thoroughly irrigated with Surgiphor, betadine solution. This was allowed to sit in the wound for 3 minutes before being thoroughly irrigated out with normal saline. The capsule was then reapproximated with the previously placed Ethibond sutures. The TFL fascia was finally closed with a No. 2 Stratafix, barbed suture. Deep tissues were then reapproximated with 0 Vicryl and a running 2-0 Vicryl. The skin was closed with a running 4-0 Monocryl in a subcuticular fashion. This was reinforced with skin glue. A Mepilex silver dressing was applied. At the end of the case, all counts were correct. Annetta was transferred to the hospital bed without difficulty and suffering no apparent complication. She has a good prognosis. Physical therapy will start today and without restrictions, weight-bearing as tolerated. Aspirin 81mg BID will be used for DVT prophylaxis.
== END 2023-02-11 15:08 | disposition home or self-care (01) ==
PROVIDERS: PCP Family Medicine; Visit Provider Student in an Organized Health Care Education/Training Program
PROC: (CPT 27130; principal; 2023-02-11 07:30)
DX: M16.12 Unilateral primary osteoarthritis, left hip (principal); E11.9 Type 2 diabetes mellitus without complications; I10 Essential (primary) hypertension; E66.9 Obesity, unspecified; Z68.41 Body mass index [BMI] 40.0-44.9, adult
CPT/HCPCS: 27130; 20985; 97140; 97162; 73501; J0690; J1100; J1170; J2250; J2405; J2704

== ENCOUNTER 2023-02-24 10:46 | Outpatient (CLI) | payer BC, MEDICARE, SELFPAY ==
--- NOTE | 2023-02-24 10:00 | DI.RAD_ITS ---
Exam(s) XR HIP LT COMPLETE AP PELVIS EXAM: XR HIP LT COMPLETE AP PELVIS CLINICAL HISTORY: 1st post op L AR. TECHNIQUE: 2D digital imaging was performed. Two images were obtained. AP, lateral and oblique view s were obtained. COMPARISON: CR XR HIP LT COMPLETE AP PELVIS from 01/13/2023 XA XR HIP LT IN OR from 02/11/2023 FINDINGS: BONES: There are stable post operative changes present. No fracture or dislocation. JOINTS: The orthopedic hardware is in good position. No evidence of hardware loosening. SOFT TISSUE: Normal. IMPRESSION: Stable postoperative changes. DATA REPOSITORY: RADIATION DOSE DELIVERED:
== END 2023-02-24 10:47 | disposition home or self-care (01) ==
LOC: DIORS 10:47
PROVIDERS: PCP Family Medicine; Visit Provider Student in an Organized Health Care Education/Training Program
DX: Z96.642 Presence of left artificial hip joint (principal)
CPT/HCPCS: 73502

== ENCOUNTER 2023-08-22 16:28 | Outpatient (REF) | payer MEDICARE, SELFPAY ==
[2023-08-22 14:58] LABS: HCT 46.8 % (36.0-46.0); HGB 15.2 g/dL (11.2-15.7); MCH 28.5 pg (27.0-33.0); MCHC 32.5 % (32.0-36.0); MCV 88 fL (80-95); MPV 11.8 fL (8.0-11.0); Platelet Count 245 10^3/uL (130-400); RBC 5.34 10^6/uL (3.93-5.22); RDW 13.3 % (11.7-14.6); RDW-SD 42.7 fL; WBC 5.62 10^3/uL (4.4-10.8)
[2023-08-22 15:34] LABS: ALT 64 U/L (14-59); AST 47 U/L (15-37); Albumin 4.1 g/dL (3.4-5.0); Alkaline Phosphatase 97 U/L (46-116); BUN 20 mg/dL (7-18); Bilirubin, Total 0.6 mg/dL (0.2-1.0); CREATININE 0.8 mg/dL (0.55-1.02); Calcium 9.5 mg/dL (8.5-10.1); Calculated LDL 197 mg/dL (<100); Chloride 100 mmol/L (98-107); Cholesterol 294 mg/dL (<200); Estimated GFR 81.21 (mL/min/1.73m2); Glucose 159 mg/dL (74-106); HDL Cholesterol 47 mg/dL (40-60); Hemoglobin A1C 7.2 % (<5.7); Potassium 4.2 mmol/L (3.5-5.1); Sodium 139 mmol/L (136-145); Total Protein 7.6 g/dL (6.4-8.2); Triglyceride 253 mg/dL (<150)
[2023-08-22 15:41] LABS: Vitamin D 25 Total 13.8 ng/mL (30-100)
== END 2023-08-22 16:29 | disposition home or self-care (01) ==
LOC: NCHCN 16:28
PROVIDERS: PCP Family Medicine; Visit Provider Family Medicine
DX: E11.9 Type 2 diabetes mellitus without complications (principal); Z00.00 Encounter for general adult medical examination without abnormal findings; I10 Essential (primary) hypertension
CPT/HCPCS: 80053; 80061; 82306; 85027; 83036

== ENCOUNTER 2024-02-13 11:08 | Outpatient (CLI) | payer MEDICARE, SELFPAY ==
--- NOTE | 2024-02-13 10:06 | DI.RAD_ITS ---
Exam(s) XR HIP LT AP LAT ONLY EXAM: XR HIP LT AP LAT ONLY CLINICAL HISTORY: ANNUAL F/U L AR. TECHNIQUE: 2D digital imaging was performed. Two images were obtained. AP and lateral views were ob tained. COMPARISON: CR XR HIP LT COMPLETE AP PELVIS from 02/24/2023 FINDINGS: BONES: There are stable post operative changes of a left total hip replacement present. No fracture or dislocation. JOINTS: The orthopedic hardware is in good position. No evidence of hardware loosening. SOFT TISSUE: Normal. IMPRESSION: Stable left total hip replacement. DATA REPOSITORY: RADIATION DOSE DELIVERED:
== END 2024-02-13 11:09 | disposition home or self-care (01) ==
LOC: DIORS 11:08
PROVIDERS: PCP Family Medicine; Referring Provider Family Medicine; Visit Provider Physician Assistant
DX: Z47.1 Aftercare following joint replacement surgery (principal); Z96.642 Presence of left artificial hip joint
CPT/HCPCS: 99213; 73502

== ENCOUNTER 2025-02-22 13:01 | Outpatient (REF) | payer MEDICARE, SELFPAY ==
[2025-02-22 15:34] LABS: HCT 43.7 % (36.0-46.0); HGB 14.5 g/dL (11.2-15.7); MCH 28.9 pg (27.0-33.0); MCHC 33.2 % (32.0-36.0); MCV 87 fL (80-95); MPV 12.4 fL (8.0-11.0); Platelet Count 206 10^3/uL (130-400); RBC 5.01 10^6/uL (3.93-5.22); RDW-SD 40.8 fL; WBC 5.19 10^3/uL (4.4-10.8)
[2025-02-22 16:13] LABS: ALT 117 U/L (14-59); AST 57 U/L (15-37); Albumin 3.8 g/dL (3.4-5.0); Alkaline Phosphatase 94 U/L (46-116); Anion Gap 8.5 mmol/L (3-11); BUN 18 mg/dL (7-18); Bilirubin, Total 0.6 mg/dL (0.2-1.0); CO2 31.5 mmol/L (21.0-32.0); CREATININE 0.7 mg/dL (0.55-1.02); Calcium 9.1 mg/dL (8.5-10.1); Calculated LDL 148 mg/dL (<100); Chloride 102 mmol/L (98-107); Cholesterol 249 mg/dL (<200); Estimated GFR 94.15 (mL/min/1.73m2); Glucose 243 mg/dL (74-106); HDL Cholesterol 49 mg/dL (>or=50); Potassium 4.4 mmol/L (3.5-5.1); Sodium 142 mmol/L (136-145); Total Protein 7.1 g/dL (6.4-8.2); Triglyceride 260 mg/dL (<150); Vitamin D 25 Total 40 ng/mL (30-100)
== END 2025-02-22 13:02 | disposition home or self-care (01) ==
LOC: NCHCN 13:01
PROVIDERS: PCP Family Medicine; Visit Provider Family Medicine
DX: I10 Essential (primary) hypertension (principal); E78.9 Disorder of lipoprotein metabolism, unspecified; M19.90 Unspecified osteoarthritis, unspecified site
CPT/HCPCS: 80053; 80061; 82306; 85027

== ENCOUNTER 2025-03-04 00:35 | Outpatient (CLI) | payer MEDICARE, SELFPAY ==
--- NOTE | 2025-03-04 | DI.MAMMO_ITS ---
Exam(s) MAMMO SCREENING EXAM: MAMMO SCREENING CLINICAL HISTORY: SCREENING Z12.31. TECHNIQUE: Bilateral full field digital CC and MLO mammographic images were obtained with 3D tomosyn thesis and utilizing computer aided detection (CAD). COMPARISON: Prior mammograms dating back to 2016 were reviewed. FINDINGS: There has been no significant change in the appearance and distribution of the fibroglandular tissue. There are no CAD designations. No new right breast findings. In the left breast a small benign-appearing nodule located anteriorly is unchanged from 2016 and ther efore benign. There are no new spiculated masses nor malignant-appearing microcalcification groups in either breast . There is no significant architectural distortion nor skin thickening-retraction. IMPRESSION: No radiographic evidence of malignancy. BI-RADS Category 1 - Negative Breast Density - Category B - There are scattered areas of fibroglandular density. Breast density Category C or D implies that the patient has dense breast tissue. Dense breast tissue can make it harder to find cancer on a mammogram. Dense breast tissue is also associated with an incr eased risk of breast cancer. This information about the result of the mammogram report was provided to the patient to raise their awareness. Use this report when you speak with the patient about their risks for breast cancer, which includes their family history. At that time, you may recommend additional screening tests (Ultrasoun d or MRI) as these tests may add significant information. A negative radiographic report should not delay biopsy if a dominant or clinically suspicious mass is present. Up to ten percent of cancers are not identified on mammography. A negative report may reinforce clinical impression. Adenosis and dense breasts may obscure an underlying neoplasm. False positive reports average 6 to 10%. Patient will receive a letter notifying them of these results.
== END 2025-03-04 00:55 ==
PROVIDERS: PCP Family Medicine; Visit Provider Family Medicine
DX: Z12.31 Encounter for screening mammogram for malignant neoplasm of breast (principal); R92.323 Mammographic fibroglandular density, bilateral breasts
CPT/HCPCS: 77063; 77067

== ENCOUNTER 2025-06-08 14:51 | Outpatient (REF) | payer MEDICARE, SELFPAY ==
[2025-06-09 17:22] LABS: COMMENT (LAB VIEW ONLY) 41.92 mg/dL; Microalb ug/mg Crea 7.4 ug/mg Cr
== END 2025-06-08 14:52 | disposition home or self-care (01) ==
LOC: NCHCN 14:51
PROVIDERS: PCP Family Medicine; Visit Provider Family Medicine
DX: E11.9 Type 2 diabetes mellitus without complications (principal)
CPT/HCPCS: 82043; 82570